=== PATIENT | female | born 1980 | race African-American/Black ===

== ENCOUNTER → 2016-10-03 | Outpatient (CLI) | payer BC ==
[~2016-10-03] MED LIST: BCPILLS PO; FERR1TAB23 PO; MULT-506 PO
--- NOTE | 2016-10-03 14:47 | DIAGNOSTIC IMAGING REPORT ---
ULTRASOUND OF THE PELVIS CLINICAL HISTORY: Pelvic pain. COMPARISON STUDY: No priors. TECHNIQUE: Real-time, grayscale, and color flow sonography of the pelvis is performed both transabdominally and endovaginally. Images are reviewed in the transverse and longitudinal planes. FINDINGS: Uterus: The retroverted uterus is normal in size and echotexture, measuring 7.2 x 5.0 x 5.8 cm. Several fibroids are identified. The largest on the fundal region and measure up to 3.5 cm. There is trace fluid within the cervical canal. Small nabothian cysts are incidentally noted in the cervix. Endometrium: The endometrium is normal in appearance, and the endometrial stripe is normal in thickness measuring up to 0.7 cm. Ovaries: The ovaries are normal in size and morphology. The right ovary measures 3.7 x 2.3 x 2.6 cm and the left ovary measures 2.7 x 1.7 x 2.5 cm. There are bilateral ovarian follicles. A dominant follicle in the right ovary measures 2.2 cm. Normal Doppler waveforms are shown within both ovaries. Pelvis: There is a small volume of minimally complex free fluid in the right adnexa. No concerning adnexal lesion is seen. IMPRESSION: 1. The ovaries are normal in appearance. 2. Retroverted and fibroid uterus. 3. There is a small volume of minimally complex free fluid in the right adnexa. This may represent the sequelae of a ruptured hemorrhagic follicle/ cyst. Clinical correlation will be required. Electronically signed by: Parker Mcnally M.D. 10/03/2016 2:45 PM Dictated Date/Time: 10/03/2016 2:39 PM
== END | disposition home or self-care (01) ==
LOC: C.ULTR 13:55
PROVIDERS: ATTEND Nurse Practitioner
DX: R10.2 Pelvic and perineal pain (principal)

== ENCOUNTER 2017-03-07 20:19 | Emergency (ER) | payer BC ==
[~2017-03-07] VITALS: Ht 165.1 cm; Wt 66.0 kg
[2017-03-07 20:22] VITALS: TEMP 36.9; Ht 165.1 cm; Wt 66.0 kg
[2017-03-07] MEDS ORDERED: SODIUM CHLORIDE 0.9% 1000ML 2,000 ML IV STA (20:43)
[2017-03-07 21:14] LABS: BASO % 0.2 %; BASO ABS # 0.02 K/uL (0-0.2); COMPLETE YES; EOS % 1.8 %; HEMATOCRIT 39.3 % (37-47); IG% 0.1 %; LYMPH % 25.2 %; LYMPH ABS # 2.35 K/uL (1.2-3.4); MEAN CELL VOLUME 87.1 fL (80-100); MEAN CORPUSCULAR HEMOGLOBIN 27.9 pg (25-34); MEAN CORPUSCULAR HGB CONC 32.1 g/dl (32-36); MEAN PLATELET VOLUME 11.7 fL (7.4-10.4); MONO % 5.4 %; NEUT % 67.3 %; PLATELET COUNT 281 K/uL (130-400); RED BLOOD COUNT 4.51 M/uL (4.2-5.4); WHITE BLOOD COUNT 9.31 K/uL (4.8-10.8)
--- NOTE | 2017-03-07 21:19 | DIAGNOSTIC IMAGING REPORT ---
SINGLE VIEW CHEST CLINICAL HISTORY: Lightheadedness. FINDINGS: An AP, portable, upright chest radiograph is compared to study dated 01/11/2016. The examination is degraded by portable technique and patient rotation. The cardiomediastinal silhouette is unremarkable. The lungs and pleural spaces are clear. No pneumothorax is seen. The bony thorax is grossly intact. IMPRESSION: No active disease in the chest. Electronically signed by: Parker Mcnally M.D. 03/07/2017 9:18 PM Dictated Date/Time: 03/07/2017 9:17 PM
[2017-03-07] MEDS ORDERED: FERR1TAB23 PO (21:28)
[2017-03-07] MEDS ORDERED: BCPILLS PO (21:28)
[2017-03-07] MEDS ORDERED: MULT-506 PO (21:28)
[2017-03-07 21:32] LABS: ALT/SGPT 22 U/L (12-78); AST/SGOT 16 U/L (15-37); BLOOD UREA NITROGEN 10 mg/dl (7-18); BUN/CREATININE RATIO 12.4 (10-20); CALCIUM 8.7 mg/dl (8.5-10.1); CARBON DIOXIDE 24 mmol/L (21-32); CHLORIDE 107 mmol/L (98-107); GLUCOSE 99 mg/dl (70-99); POTASSIUM 3.3 mmol/L (3.5-5.1); SODIUM 139 mmol/L (136-145)
[2017-03-07 21:37] LABS: ALKALINE PHOSPHATASE 44 U/L (45-117)
[2017-03-07 21:51] LABS: MANUAL MICROSCOPIC REQUIRED? NO; REVIEW REQ? NO; URINE APPEARANCE CLEAR (CLEAR); URINE BILIRUBIN NEG (NEG); URINE COLOR YELLOW; URINE EPITHELIAL CELL AUTO >30 /lpf (0-5); URINE NITRITE NEG (NEG); URINE SPECIFIC GRAVITY 1.029 (1.000-1.030); UROBILINOGEN NEG (NEG); ZZUR CULT IF INDIC CLEAN CATCH NO
[2017-03-07] MEDS ORDERED: POTASSIUM CHLORIDE 10 MEQ TABCR PO STA (22:10)
[2017-03-07 22:19] VITALS: BP 113/70; PULSE 74; O2SAT 97
--- NOTE | 2017-03-08 00:10 | EMERGENCY ROOM VISIT NOTE ---
History Report prepared by Andressa: Alex Clinton Under the Supervision of: Dr. Rikki Jones D.O. First contact with patient: 20:28 Chief Complaint: DIZZY Stated Complaint: LIGHTHEADED, ANEMIC History of Present Illness The patient is a 36 year old female who presents to the Emergency Room with complaints of a persistent dizziness that started a few hours ago. She says that she was eating dinner when she started feeling nauseous, lightheaded, and weak. The patient states that she felt that all the energy was drained from her body. She says that if she stood up she would have passed out, but she denies any loss of consciousness. The patient also has had blurry vision. She notes that this has happened before because she is anemic. 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 Hemoglobin at that time was 8. The patient was put on control which helped make her periods less heavy, but her last cycle was heavy. Her period ended a week ago. She denies any chest pain, shortness of breath, sign of legs, recent trips, recent surgeries, hemoptysis, diarrhea, hematochezia, melena, calf swelling, or pain or burning with urination. Patient denies any weakness or numbness in arms or legs. The patient is not on any blood thinners. She has no history of heart disease, hypertension, diabetes, hyperlipidemia and she has no history of sudden in her family. Her last bowel movement was this morning with no change. Source of History: patient Onset: A few hours ago Position: other (global - dizziness) Timing: other (persistent) Associated Symptoms: + nausea, + weakness, No LOC, No chest pain, No SOB, No melena, No hematochezia, No diarrhea, No urinary symptoms Note: Associated symptoms: Blurry vision, lightheaded. Denies calf swelling, hemoptysis. Review of Systems See HPI for pertinent positives & negatives. A total of 10 systems reviewed and were otherwise negative. Past Medical & Surgical Medical Problems: (1) Anemia Family History FH: cancer Social History Smoking Status: Never Smoker Drug Use: none Marital Status: Housing Status: lives with family Current/Historical Medications Scheduled Control Pills ( Control Pills), 1 TAB PO DAILY Ferrous Sulfate (Iron), 325 MG PO DAILY Multivitamin (Multivitamin), 1 TAB PO DAILY Allergies Coded Allergies: No Known Allergies (Unverified , 01/11/16) Physical Exam Vital Signs Date Time Temp Pulse Resp B/P (MAP) Pulse Ox O2 Delivery O2 Flow Rate FiO2 03/07/17 22:19 74 18 113/70 97 Room Air 03/07/17 20:22 36.9 91 18 137/89 100 Room Air Physical Exam GENERAL: sitting up in bed, tearful, nontoxic, no acute distress EYE EXAM: normal conjunctiva, PERRL and EOM's intact OROPHARYNX: no exudate, no erythema, lips, buccal mucosa, and tongue normal and mucous membranes are moist EARS: TM's clear bilaterally. NECK: supple, no nuchal rigidity, no adenopathy, non-tender LUNGS: Clear to auscultation. Normal chest wall mechanics HEART: no murmurs, S1 normal and S2 normal ABDOMEN: abdomen soft, non-tender, normo-active bowel sounds, no masses, no rebound or guarding. BACK: Back is symmetrical on inspection and there is no deformity, no midline tenderness, no CVA tenderness. SKIN: no rashes and no bruising UPPER EXTREMITIES: upper extremities are grossly normal. LOWER EXTREMITIES: No pitting edema. NEURO EXAM: Normal sensorium, cranial nerves II-XII intact, normal speech, no weakness of arms, no weakness of legs. No drift. Finger to nose intact. Gross sensation intact. Medical Decision & Procedures ER Provider Diagnostic Interpretation: X-ray results as stated below per my review and the radiologist's interpretation : SINGLE VIEW CHEST CLINICAL HISTORY: Lightheadedness. FINDINGS: An AP, portable, upright chest radiograph is compared to study dated 01/11/2016. The examination is degraded by portable technique and patient rotation. The cardiomediastinal silhouette is unremarkable. The lungs and pleural spaces are clear. No pneumothorax is seen. The bony thorax is grossly intact. IMPRESSION: No active disease in the chest. Electronically signed by: Parker Mcnally M.D. 03/07/2017 9:18 PM Dictated Date/Time: 03/07/2017 9:17 PM Laboratory Results 03/07/17 21:02 Red Blood Count 4.51, Mean Corpuscular Volume 87.1, Mean Corpuscular Hemoglobin 27.9, Mean Corpuscular Hemoglobin Concent 32.1, Mean Platelet Volume 11.7, Neutrophils (%) (Auto) 67.3, Lymphocytes (%) (Auto) 25.2, Monocytes (%) (Auto) 5.4, Eosinophils (%) (Auto) 1.8, Basophils (%) (Auto) 0.2, Neutrophils # (Auto) 6.26, Lymphocytes # (Auto) 2.35, Monocytes # (Auto) 0.50, Eosinophils # (Auto) 0.17, Basophils # (Auto) 0.02 03/07/17 21:02 Test 03/07/17 21:02 03/07/17 21:17 White Blood Count 9.31 K/uL (4.8-10.8) Red Blood Count 4.51 M/uL (4.2-5.4) Hemoglobin 12.6 g/dL (12.0-16.0) Hematocrit 39.3 % (37-47) Mean Corpuscular Volume 87.1 fL (80-100) Mean Corpuscular Hemoglobin 27.9 pg (25-34) Mean Corpuscular Hemoglobin Concent 32.1 g/dl (32-36) Platelet Count 281 K/uL (130-400) Mean Platelet Volume 11.7 fL (7.4-10.4) Neutrophils (%) (Auto) 67.3 % Lymphocytes (%) (Auto) 25.2 % Monocytes (%) (Auto) 5.4 % Eosinophils (%) (Auto) 1.8 % Basophils (%) (Auto) 0.2 % Neutrophils # (Auto) 6.26 K/uL (1.4-6.5) Lymphocytes # (Auto) 2.35 K/uL (1.2-3.4) Monocytes # (Auto) 0.50 K/uL (0.11-0.59) Eosinophils # (Auto) 0.17 K/uL (0-0.5) Basophils # (Auto) 0.02 K/uL (0-0.2) RDW Standard Deviation 55.4 fL (36.4-46.3) RDW Coefficient of Variation 17.3 % (11.5-14.5) Immature Granulocyte % (Auto) 0.1 % Immature Granulocyte # (Auto) 0.01 K/uL (0.00-0.02) Anion Gap 8.0 mmol/L (3-11) Est Creatinine Clear Calc Drug Dose 85.8 ml/min Estimated GFR () 108.4 Estimated GFR (Non- 93.5 BUN/Creatinine Ratio 12.4 (10-20) Calcium Level 8.7 mg/dl (8.5-10.1) Total Bilirubin 0.2 mg/dl (0.2-1) Direct Bilirubin < 0.1 mg/dl (0-0.2) Aspartate Amino Transf (AST/SGOT) 16 U/L (15-37) Alanine Aminotransferase (ALT/SGPT) 22 U/L (12-78) Alkaline Phosphatase 44 U/L (45-117) Troponin I < 0.015 ng/ml (0-0.045) Total Protein 7.1 gm/dl (6.4-8.2) Albumin 3.0 gm/dl (3.4-5.0) Lipase 128 U/L (73-393) Urine Color YELLOW Urine Appearance CLEAR (CLEAR) Urine pH 5.0 (4.5-7.5) Urine Specific [place] 1.029 (1.000-1.030) Urine Protein NEG (NEG) Urine Glucose (UA) NEG (NEG) Urine Ketones TRACE (NEG) Urine Occult Blood NEG (NEG) Urine Nitrite NEG (NEG) Urine Bilirubin NEG (NEG) Urine Urobilinogen NEG (NEG) Urine Leukocyte Esterase TRACE (NEG) Urine WBC (Auto) 5-10 /hpf (0-5) Urine RBC (Auto) 0-4 /hpf (0-4) Urine Hyaline Casts (Auto) 1-5 /lpf (0-5) Urine Epithelial Cells (Auto) >30 /lpf (0-5) Urine Bacteria (Auto) NEG (NEG) Urine Test NEG (NEG) Laboratory results per my review. Medications Administered Medications (Trade) Dose Ordered Sig/Spring Route Start Time Stop Time Status Last Admin Dose Admin Sodium Chloride 2,000 ml @ 999 mls/hr Q2H1M STAT IV 03/07/17 20:43 03/07/17 22:43 DC 03/07/17 21:14 999 MLS/HR Potassium Chloride (Klor-Con M10) 40 meq NOW STAT PO 03/07/17 22:10 03/07/17 22:11 DC 03/07/17 22:21 40 MEQ ECG Indication: nausea, weakness Rate (beats per minute): 71 Rhythm: sinus rhythm Findings: no ectopy, other (normal axis) ED Course ED COURSE: Vital signs were reviewed and showed normal vitals. The patients medical record was reviewed The above diagnostic studies were performed and reviewed. ED treatments and interventions as stated above. 2032: The patient was evaluated in room B7. A complete history and physical examination was performed. 2042: Ordered NSS 2000 ml @ 999 mls/hr IV. 2146: I reevaluated the patient and she is feeling much better. 2209: Ordered Klor-Con M10 40 meq PO. 2211: Upon reevaluation, the patient is resting comfortably.I discussed my findings with the patient and she understands and agrees with the treatment plan. Based on the patients age, coexisting illnesses, exam and lab findings the decision to treat as an outpatient was made. The patient remained stable while under my care. The patient appeared well at the time of discharge. Medical Decision Differential diagnosis includes etiologies such as benign positional vertigo, dehydration, hypovolemia, anemia, tumor, infection, hypoglycemia, electrolyte abnormalities, cardiac sources, intracerebral event, toxicologic, neurologic, as well as others were entertained. Blood pressure screening: Patient was found to have normal blood pressure on screening and does not require follow-up. Medication Reconciliation: I attest that I have personally reviewed the patient' s current medication list. Patient is a 28-year-old female who presents the ER for feeling lightheaded and weak at dinner. She has no cardiac risk factors or PE risk factors. She completely neurologically intact. CBC, BMP, LFTs, bilirubin and lipase were remarkable for a potassium of 3.3. Troponin was negative. EKG was unremarkable. UA was negative but did have trace ketones suggesting dehydration. was negative. Chest x-ray was unremarkable. Her hemoglobin has improved significantly from her previous of 8 to today in the 12. I do not believe this to be neurologic in nature. With her age and risk factors this is very unlikely cardiac in nature. Patient were updated at bedside. She was given fluids and felt significantly better. Patient was discharged to follow-up with her PCP as I favor this is likely secondary to dehydration versus possible vasovagal as she felt nauseous prior to feeling lightheaded. Discussed with Pt concerning signs and symptoms to watch out for. Pt was instructed to follow up with their PCP and discussed with the patient their option to return to the ED at anytime for persistent or worsening symptoms. The appropriate anticipatory guidance and out-patient management, including indications for return to the emergency department, were explained at length to the patient and understood. Impression Primary Impression: Lightheaded Additional Impression: Hypokalemia Scribe Attestation The scribe's documentation has been prepared under my direction and personally reviewed by me in its entirety. I confirm that the note above accurately reflects all work, treatment, procedures, and medical decision making performed by me. Departure Information Dispostion Home / Self-Care Referrals Beka Calix M.D. (PCP) Patient Instructions ED Near [facility], [facility] Additional Instructions Please follow up with your primary care doctor with in the next 24 hours. Any worsening of your symptoms, please return to the ED immediately. This includes weakness or numbness in arms or legs, chest pain, shortness breath, passing out , or any other concerning signs or symptoms from your standpoint. Please try to remain as hydrated as possible. Please follow up with your primary care doctor as stated above. Your potassium was slightly low and was repleted. Problem Qualifiers
== END 2017-03-07 22:28 | disposition home or self-care (01) ==
LOC: C.EDB 20:19
DX: R42 Dizziness and giddiness (principal); E87.6 Hypokalemia; D64.9 Anemia, unspecified

== ENCOUNTER → 2017-08-18 | Outpatient (CLI) | payer BC ==
[2017-08-18 17:27] LABS: BASO % 0.3 %; BASO ABS # 0.02 K/uL (0-0.2); COMPLETE YES; EOS % 1.8 %; HEMATOCRIT 35.7 % (37-47); IG% 0.1 %; LYMPH % 28.8 %; LYMPH ABS # 2.29 K/uL (1.2-3.4); MEAN CELL VOLUME 90.4 fL (80-100); MEAN CORPUSCULAR HEMOGLOBIN 29.6 pg (25-34); MEAN CORPUSCULAR HGB CONC 32.8 g/dl (32-36); MEAN PLATELET VOLUME 11.6 fL (7.4-10.4); MONO % 6.8 %; NEUT % 62.2 %; PLATELET COUNT 315 K/uL (130-400); RED BLOOD COUNT 3.95 M/uL (4.2-5.4); WHITE BLOOD COUNT 7.94 K/uL (4.8-10.8)
[2017-08-18 17:55] LABS: THYROID STIMULATING HORMONE 1.06 uIu/ml (0.300-4.500)
== END | disposition home or self-care (01) ==
LOC: C.LAB1850 16:34
PROVIDERS: ATTEND Physician Assistant
DX: N92.1 Excessive and frequent menstruation with irregular cycle (principal)